=== PATIENT | male | born 1990 | race Caucasian/White ===

== ENCOUNTER 2018-07-15 15:02 | Emergency (ER) | payer OTHER, SELFPAY ==
[2018-07-15 15:03] VITALS: BP 119/72; PULSE 66; RESP 15; TEMP 36.7; O2SAT 100
--- NOTE | 2018-07-15 15:58 | ED.DCSUM_ITS ---
- ER Visit Summary Date of Service: 07/15/18 Chief Complaint: Foreign body, left eye History of Present Illness: The patient is a 27 M who has a foreign body in his left eye. He was grinding some metal when a piece went into his left eye. He has a foreign body sensation in the left eye. It is worse with blinking. No visual changes. He was not wearing his safety glasses. He has a history of this in the past that was removed with an eye sushil Physical Examination: Vital signs reviewed. Left eye exam reveals a foreign body at the 9 o'clock position of the iris. He has no pain with extraocular movements. He has no nystagmus. His pupils equal round and reactive. Exam of the posterior segment is limited by miosis. Test Results: None performed Emergency Department Course and Treatment: The patient had tetracaine instilled in the left eye. The eye bur was then used to remove the foreign body. No residual pieces were left. Patient will be given bacitracin ophthalmic to use 3 times a day for the next 4 days. He will follow-up with ophthalmology Treatment Plan: [] Disposition: Discharge Impression: Metallic foreign body, left eye Foreign body removal with eye sushil This note was generated with [employer] dictation software. It may contain incorrect words, spelling, and punctuation that were not noted in review of the chart prior to signing ED Disposition - Plan for ED Patient: Referrals: Care Physician,No Primary [Primary Care Provider] -
--- NOTE | 2018-07-15 15:58 | ED.DEP ---
ED Disposition - Plan for ED Patient: Disposition: Home or Assisted Living Instructions: ED Foreign Body Cornea Referrals: Care Physician,No Primary [Primary Care Provider] -
[2018-07-15] MEDS: Tetracaine 0.5% Ophthalmic Bottle 1 DRP LEFT EYE (16:05)
[2018-07-15 16:10] VITALS: RESP 18
== END 2018-07-15 16:13 | disposition home or self-care (01) ==
PROVIDERS: Emergency Provider Emergency Medicine
DX: T15.92XA Foreign body on external eye, part unspecified, left eye, initial encounter (principal); X58.XXXA Exposure to other specified factors, initial encounter; Y93.9 Activity, unspecified; Y92.9 Unspecified place or not applicable; Y99.9 Unspecified external cause status
CPT/HCPCS: 99282

== ENCOUNTER 2020-03-28 19:18 | Emergency (ER) | payer OTHER, SELFPAY ==
[2020-03-28 19:19] VITALS: BP 131/73; PULSE 81; RESP 16; TEMP 36.7; O2SAT 96
[2020-03-28 19:20] VITALS: BP 131/73; PULSE 81; RESP 16; TEMP 36.7; O2SAT 96; BMI 23.3
[2020-03-28] MEDS: Diphth,Pertuss(Acell),Tet Vac 0.5 ML Vial IM (19:35)
--- NOTE | 2020-03-28 19:51 | ED.VIS.GEN ---
History of Present Illness Chief Complaint: Foreign Body Informant: Patient Onset: Today Narrative: Patient is a 29-year-old male with no significant past medical history presenting with concern of retained splinter in his arm. Patient was helping his mother with a construction project and working on exposed [employer]. He then felt a splinter go into his right forearm. He pulled out about 1/2 inch piece of wood but feels that there is a small piece still in his arm. He is concerned that possibly the infection so he came to the emergency room for further evaluation. He does not know when his last tetanus was. He denies any other complaints at this time. Past Medical History - Allergies and Home Meds Allergies/Adverse Reactions: Allergies Sulfa (Sulfonamide Antibiotics) Allergy (Verified 07/13/13 22:14) Unknown sulfamethoxazole [From Bactrim] Allergy (Verified 04/18/13 12:59) Unknown trimethoprim [From Bactrim] Allergy (Verified 04/18/13 12:59) Unknown Primary Care Physician: Care Physician,No Primary [Primary Care Provider] - Past Medical History: None Surgical History: noncontributory Smoking Status: Never smoker Review of Systems General: Denies: Chills, Fever, Sweats Eyes: Denies: Visual changes - bilaterally, Diplopia ENT: Denies: Rhinorrhea, Sore throat Cardiovascular: Denies: Chest pain, Palpitations Respiratory: Denies: Dyspnea, Cough Gastrointestinal: Denies: Abdominal pain, Nausea Musculoskeletal: Denies: Back pain, Swelling, Extremity Pain Skin: Reports: Abrasions, Wounds - right forearm . Denies: Rash Neurological: Denies: Headache, Weakness, Numbness Physical Exam Vital Signs/Narrative: Vital Signs Temp Pulse Resp BP Pulse Ox 03/28/20 19:20 98.1 F 81 16 131/73 H 96 03/28/20 19:19 98.1 F 81 16 131/73 H 96 Inital Vital Signs reviewed: Yes General: Well nourished, Well developed, No Acute Distress Head: Normocephalic, Atraumatic Eyes: Perrl, EOMI ENT: Moist mucous membranes Neck: Supple Cardiovascular: Regular rate, Regular rhythm, - - 2+ bilateral radial pulses Respiratory: No distress Abdomen: Soft, Nontender, Nondistended, Normal bowel sounds Extremities: Nontender, No edema, - - normal ROM of RUE Skin: Normal color, No rash, Trauma - Superficial abrasion over the medial mid right forearm, swelling 1 cm away from the abrasion is a small nodule that is palpated. Do not feel an actual foreign body on my palpation. No active bleeding. No surrounding erythema or signs of infection at this time. Neurological: Alert, Oriented x3, Cranial nerves II-XII grossly intact, Normal Strength, Normal Sensation Psychological: Normal affect, Normal Mood Diagnostic/Tx/Re-eval - Medical Decision Making Evaluated for concern of retained splinter in his forearm. His tetanus is updated. Bedside ultrasound performed by myself does show a 1 mm foreign body very superficial in the skin. Patient is counseled this time I feel I would do more damage trying to remove the foreign body then to manage conservatively with warm compresses. Patient be given a [id number] course of Keflex should he develop any signs of infection. He is given a primary care doctor to follow-up with. Patient is counseled on signs and symptoms requiring return to the emergency room. Patient verbalizes agreement and understand this plan. Patient discharged home in stable and improved condition. ED Disposition - Plan for ED Patient: Disposition: Home or Assisted Living Diagnosis: Splinter in skin, Need for tetanus, diphtheria, and acellular pertussis (Tdap) vaccine Instructions: ED Foreign Body Soft Tissue Prescriptions: Cephalexin [Keflex] 500 mg PO Q6 #28 cap Prescription Printed Referrals: Dillan Butler MD [STAFF PHYSICIAN] - Additional Instructions: Apply warm compresses multiple times a day to help encourage a small piece of splinter to come out. If you develop worsening pain, redness and streaking start taking the antibiotics.
[2020-03-28 20:03] VITALS: RESP 17
--- NOTE | 2020-03-28 20:05 | ED.RN ---
pt was observed for greater than 15 minutes for shot time, no reaction noted at this time.
== END 2020-03-28 20:04 | disposition home or self-care (01) ==
PROVIDERS: Emergency Provider Emergency Medicine
DX: S50.851A Superficial foreign body of right forearm, initial encounter (principal); Z23 Encounter for immunization; W45.8XXA Other foreign body or object entering through skin, initial encounter; Y93.E9 Activity, other interior property and clothing maintenance; Y92.009 Unspecified place in unspecified non-institutional (private) residence as the place of occurrence of the external cause; Y99.9 Unspecified external cause status
CPT/HCPCS: 90715; 99282

== ENCOUNTER 2020-06-17 19:13 | Emergency (ER) | payer OTHER, SELFPAY ==
[2020-06-17 19:14] VITALS: BP 132/74; PULSE 92; RESP 18; TEMP 36.2; O2SAT 99; BMI 22.4
--- NOTE | 2020-06-17 19:30 | ED.DCSUM_ITS ---
History of Present Illness Chief Complaint: Eye Problem Informant: Patient Narrative: 29-year-old male with no past medical history presents with foreign body in his eye it is been present over the past 3 days. States that he noticed that or today. States that there is some slight irritation without visual disturbance. States he was working on a motorcycle 3 days ago. Past Medical History - Allergies and Home Meds Allergies/Adverse Reactions: Allergies Sulfa (Sulfonamide Antibiotics) Allergy (Verified 06/17/20 19:15) Unknown sulfamethoxazole [From Bactrim] Allergy (Verified 06/17/20 19:15) Unknown trimethoprim [From Bactrim] Allergy (Verified 06/17/20 19:15) Unknown Primary Care Physician: Care Physician,No Primary [Primary Care Provider] - Prior records reviewed: Yes Past Medical History: None Surgical History: noncontributory Lives: Spouse/ Significant Other Smoking Status: Never smoker Alcohol: None Drugs: None Review of Systems General: Denies: Chills, Fever, Sweats Eyes: Reports: - - Right eye irriatation. Denies: Visual changes - bilaterally, Diplopia ENT: Denies: Rhinorrhea, Sore throat Cardiovascular: Denies: Chest pain, Palpitations Respiratory: Denies: Dyspnea, Cough, Dyspnea on exertion Gastrointestinal: Denies: Abdominal pain, Nausea, Vomiting, Diarrhea, Melena, Hematochezia Genitourinary: Denies: Dysuria, Hematuria, Frequency Musculoskeletal: Denies: Back pain, Extremity Pain Skin: Denies: Rash, Wounds Neurological: Denies: Headache, Weakness, Numbness Physical Exam Vital Signs/Narrative: Vital Signs Temp Pulse Resp BP Pulse Ox 06/17/20 19:14 97.1 F L 92 18 132/74 H 99 Inital Vital Signs reviewed: Yes General: Well nourished, Well developed, No Acute Distress Head: Normocephalic, Atraumatic Eyes: Perrl, EOMI, - - Small foreign body at approximately the locked position. Conjunctival injection. No evidence of true ulcer. ENT: Moist mucous membranes, No rhinorrhea Neck: Supple, Nontender Cardiovascular: Regular rate, Regular rhythm, No murmurs Respiratory: No distress, CTA bilaterally, Chest nontender Abdomen: Soft, Nontender, Nondistended, Normal bowel sounds Back: Nontender, Normal Inspection Extremities: Nontender, No edema Skin: Normal color, No rash Neurological: Alert, Oriented x3, Cranial nerves II-XII grossly intact, Normal Strength, Normal Sensation Psychological: Normal affect, Normal Mood Diagnostic/Tx/Re-eval - Medical Decision Making Patient appears well nontoxic. The eye was anesthetized with tetracaine. Attempts are made with a sterile cotton swab to remove the metal foreign body. These were unsuccessful. Given this is been in for 3 days patient be treated with ophthalmic Toradol as well as Ciloxan and will follow up with office technology professor tomorrow. Asked to return for new or worsening symptoms. Patient agreeable and stable time of discharge. Impression: 1. Right eye foreign body ED Disposition - Plan for ED Patient: Disposition: Home or Assisted Living Instructions: ED Corneal Foreign Body, Removed Prescriptions: Ketorolac Tromethamine/Pf [Acuvail 0.45% Ophth Solution] 1 drp RIGHT EYE 5X/DAY #1 bottle Prescription Printed Ciprofloxacin HCl [Ciloxan] 1 - 2 drp RIGHT EYE Q2H #1 bottle Prescription Printed Referrals: Cm Benavides MD [STAFF PHYSICIAN] - 1 Day Additional Instructions: Please call eye doctor first thing in the morning for appointment tomorrow. Return for vision change or worsening pain.
[2020-06-17] MEDS: Tetracaine 0.5% Ophthalmic Bottle 1 DRP EACH EYE (19:36)
== END 2020-06-17 19:41 | disposition home or self-care (01) ==
PROVIDERS: Emergency Provider Emergency Medicine
DX: T15.91XA Foreign body on external eye, part unspecified, right eye, initial encounter (principal); X58.XXXA Exposure to other specified factors, initial encounter; Y93.9 Activity, unspecified; Y92.9 Unspecified place or not applicable; Y99.9 Unspecified external cause status
CPT/HCPCS: 99282

== ENCOUNTER 2021-12-04 19:40 | Emergency (ER) | payer OTHER, SELFPAY ==
[2021-12-04 19:41] VITALS: BP 134/78; PULSE 66; RESP 18; TEMP 37.2; O2SAT 98; BMI 21.5
--- NOTE | 2021-12-04 20:35 | EX.ED.VIS.EY ---
HPI History of Present Illness Chief Complaint: Eye Problem Detail of Chief Complaint: Right eye foreign body. Informant: patient Onset/Context/Timing Location: Right Eye Onset: Yesterday Context: Gradual Onset Timing: Continuous Current Severity: Mild Maximum Severity: Mild Associated Symptoms Associated Symptoms - Eyes: Foreign body sensation History of injury: Yes and Foreign body Visual correction: None Narrative Narrative: 31-year-old male no seen past medical history. No prior eye surgery. Does not wear glasses or contacts. He was grinding metal on was wearing protective glasses. Monday he noticed light sensitivity. And today he noticed foreign body sensation and thinks he can see something on his iris. Prior similar symptoms: No Recent Illness/Hospitalization: No PFSH PFSH Medical History no medical history no medical history Home Medications ciprofloxacin HCl 0.3 % eye drops 1 - 2 drp RIGHT EYE Q2H #1 BOTTLE 06/17/20 [Rx Last Taken Unknown] ketorolac (PF) 0.45 % eye drops in a dropperette 1 drp RIGHT EYE 5X/DAY #1 BOTTLE 06/17/20 [Rx Last Taken Unknown] Allergy/AdvReac Type Severity Reaction Status Date / Time Sulfa (Sulfonamide Allergy Unknown Verified 12/04/21 19:40 Antibiotics) sulfamethoxazole Allergy Unknown Verified 12/04/21 19:40 [From Bactrim] trimethoprim [From Bactrim] Allergy Unknown Verified 12/04/21 19:40 Social History Smoking Status: Never smoker ROS ROS ED ROS Narrative Denies recent illness. Review of Systems ROS Unobtainable: Denies due to encephalopathy Constitutional Constitutional ED: Denies chills or fever(s) Eyes Eyes: Denies blurry vision ENT ENT ED: Denies ear pain Cardiovascular Cardiovascular: Denies chest pain Respiratory/Chest Respiratory/Chest: Denies cough or dyspnea Gastrointestinal Gastrointestinal: Denies abdominal pain Genitourinary Genitourinary ED: Denies dysuria Musculoskeletal Musculoskeletal: Denies arthralgias Integumentary Denies abscess Neurologic Neurologic: Denies headache(s) Psychiatric Psychiatric: Denies anxiety Endocrine Endocrinology: Denies polydipsia Hematologic/Lymphatic Hematologic/Lymphatic: Denies easy bleeding Allergic/Immunologic Allergic/Immunologic ED: Denies mouth swelling or tongue swelling EXAM Physical Exam Narrative Exam Narrative: 4-year-old male no acute distress vital signs stable afebrile. Heart lung abdominal exam is normal. H EENT exam pupils round reactive light extra motions are intact. Pupils are about 2 mm bilaterally. The right eye at about 9:00 on the iris there appears to be a metallic foreign body. Extraocular motions are intact. Upper and lower lids are unremarkable. Tetracaine and fluorescein will be instilled in the right I will try to remove the foreign body. Const Vital Signs: 12/04/21 19:41 Temperature 98.9 F Temperature Source Temporal Pulse Rate 66 Respiratory Rate 18 Blood Pressure 134/78 H Blood Pressure Mean 96 Pulse Ox 98 Oxygen Delivery Method Room Air Positive well nourished and well developed; Negative for obese, cachectic, contractures or unkempt General Appearance ED: well developed and NAD; Negative for unkempt, cachectic or contractures Nutritional Appearance: Negative for cachectic or obese HEENT HEENT Narrative: Right eye foreign body about 9:00 on the iris. atraumatic; Negative for trauma Neck no lymphadenopathy, supple and no JVD General: Negative for tenderness or other Resp normal respiratory effort, no retractions, no use of accessory muscles, clear to auscultation bilaterally and percussion normal Cardio regular rate, regular rhythm, S1 normal heart sound, S2 normal heart sound and no murmurs GI non-tender, non-distended and no masses Inspection: Negative for other Auscultation: normoactive bowel sounds Palpation: soft Extremity normal to inspection General Extremety ED: Negative for edema General Extremity: Negative for edema Neuro oriented x3 and moves all extremities Sensorium / Orientation: alert, oriented to person, oriented to place and oriented to time; Negative for orientation impaired Motor Exam: strength 5/5 throughout Psych Appearance: Negative for unkempt Attitude: No agitated Mood & Affect: Negative for depressed, anxious or tearful Skin no wounds Lesions: no lesions Rashes: no rashes Trauma: Negative for abrasion or laceration MDM MDM MDM Narrative Medical decision making narrative: 31-year-old with a foreign body in his right eye. Tetracaine will be applied. Fluorescein. Slit lamp exam. Not try to remove the foreign body. Tetracaine to the right eye. Fluorescein. I was able to remove small piece of metal about 9:00. It did leave a small corneal abrasion. I think I got all the foreign body. Slit-lamp exam showed the abrasion otherwise is unremarkable. Patient be discharged home. Tetracaine drops next 24 hours for pain. Otherwise Tylenol Motrin. Sunglasses prevent glare. Bacitracin ophthalmic ointment twice a day for next 3 days. Follow-up with ophthalmology if not improving. Return if worse. Procedures Other Procedures Procedure(s): Right eye foreign body removal. Piece of metal 9:00 removed from the iris. Small abrasion. Patient tolerated procedure well. Discharge Plan Triage Chief Complaint: Eye Problem ED Provider: Sukhi Torres Dx/Rx/DC Orders Clinical Impression: Acute foreign body of right eye Instructions: ED Corneal Abrasion, ED Corneal Foreign Body, Removed Prescriptions: No Action ketorolac (PF) 1 EACH dropperette 1 drp RIGHT EYE 5X/DAY Qty: 1 0RF ciprofloxacin HCl 5 ML drops 1 - 2 drp RIGHT EYE Q2H Qty: 1 0RF Rx Instructions: Primary Care Provider: Care Physician,No Primary Referrals: Arias Cedeño MD [Med Staff - Active Staff] - 3-5 Days if not improving Care Physician,No Primary [Primary Care Provider] - Activity Restrictions/Additional Instructions: Foreign body right eye removed at about 9:00 on the iris. Sunglasses to prevent glare. Eyedrops for pain but can only use them until Monday night then yet to stop because they can return to healing. Eye ointment twice a day to prevent infection. Follow-up with the eye doctor if not improving in 2 to 3 days. Disposition Disposition: Home, Self Care
[2021-12-04] MEDS: Tetracaine 0.5% Ophthalmic Bottle 1 DRP RIGHT EYE (20:45)
[2021-12-04] MEDS: Fluorescein 1 MG STRIP 1 STRIP RIGHT EYE (20:46)
[2021-12-04 21:29] VITALS: RESP 16
[2021-12-04] MEDS: Neomycin/Bacitracin/Polymyxin Opth. Ointment 1 APPLIC RIGHT EYE (21:36)
== END 2021-12-04 21:39 | disposition home or self-care (01) ==
PROVIDERS: Emergency Provider Emergency Medicine; Visit Provider Emergency Medicine
DX: T15.91XA Foreign body on external eye, part unspecified, right eye, initial encounter (principal); S05.00XA Injury of conjunctiva and corneal abrasion without foreign body, unspecified eye, initial encounter; W26.8XXA Contact with other sharp object(s), not elsewhere classified, initial encounter; Y99.0 Civilian activity done for income or pay
CPT/HCPCS: 99282